=== PATIENT | male | born 1980 | race Caucasian/White ===

== ENCOUNTER 2018-08-12 20:34 | Emergency (ER) | payer OTHER ==
--- NOTE | 2018-08-12 20:45 | ER Report ---
History and Physical Time Seen By MD: 20:45 Hx. of Stated Complaint: PATIENT STATES HE HAS BEEN HAVING SINUS PAIN FOR THE LAST 2WEEKS, COUGH, SMALL AMOUNT OF SINUS DRAINAGE, BLOODY NOSES. PATIENT HAS BEEN DOING STEAMY SHOWERS AT HOME, AND MOTRIN, BUT DOESN'T SEEM TO BE GETTING BETTER. HPI/ROS CHIEF COMPLAINT: Sinus pressure, headache, cough 2 weeks HISTORY OF PRESENT ILLNESS: 38-year-old male patient presents to the emergency room with complaint of sinus pressure, headache, cough 2 weeks. Patient states that he has been so sick for the past week please not been able to get out of bed for longer than an hour. He states that he is out of bed for approximately one hour that he has worsening headache and facial pain. Patient denies having any fevers or chills. He states that he has taken ibuprofen for this with no improvement. Allergies: Uncoded Allergies: RYDER PEPPERS (Allergy, Intermediate, SEVERE VOMITING, 08/12/18) Home Meds Active Scripts Amoxicillin/Pot Clav 875-125 Mg Tab (AUGMENTIN 875-125 TABLET) 1 Each Tablet, 1 TAB PO Q12H, #19 TAB Prov:RICKY RENTERIA SAMPLE ROOM SUPERVISOR 08/12/18 Past Medical/Surgical History Patient has a past medical history of Layne's syndrome, fractures, blindness in the right eye. Patient has surgical history of right knee surgery. Reviewed Nurses Notes: Yes Constitutional Vital Sign - Last 24 Hours 08/12/18 20:38 Temp 98.1 Pulse 86 Resp 24 B/P (MAP) 126/87 Pulse Ox 96 O2 Delivery Room Air Physical Exam General appearance: Alert no distress. Respiratory: Chest is non tender, lungs are clear to auscultation. Cardiac: Regular rate and rhythm. ENT: Tympanic membranes are pearly-barron, auditory canals are patent, mucous membranes are moist. Patient does have bilateral swelling in the bilateral nares. Patient has bilateral tenderness to the frontal & maxillary sinuses. Lymph: Patient has bilateral cervical chain lymphadenopathy. DIFFERENTIAL DIAGNOSIS: After history and physical exam differential diagnosis was considered for sinusitis, upper respiratory infection. Medical Decision Making ED Course/Re-evaluation ED Course Patient was admitted to exam room, history and physical were obtained. Differential diagnoses were considered. On examination lungs are clear, heart regular, patient has swelling to bilateral nares, tenderness to the frontal and maxillary sinuses. I discussed my findings with patient. I believe that he does have a sinus infection which is causing this discomfort especially with his long as the symptoms been going on. I recommended starting patient on antibiotics. He states that they'll be good. He also requested something for pain for his headache. Patient was given a to go pack of Toradol as well as a dose of azithromycin here in the emergency room. A prescription was printed for the patient to fill tomorrow morning. Patient verbalized understanding and agreement with plan. Decision to Disposition Date: Aug 12, 2018 Decision to Disposition Time: 20:54 Depart Departure Latest Vital Signs Vital Signs Date Time Temp Pulse Resp B/P (MAP) Pulse Ox O2 Delivery O2 Flow Rate FiO2 08/12/18 20:38 98.1 86 24 126/87 96 Room Air Impression: Primary Impression: Sinusitis Condition: Improved Disposition: HOME OR SELF-CARE New Scripts Amoxicillin/Pot Clav 875-125 Mg Tab (AUGMENTIN 875-125 TABLET) 1 Each Tablet 1 TAB PO Q12H, #19 TAB Prov: RICKY RENTERIA 08/12/18 Patient Instructions: Sinusitis (ED) Additional Instructions: Increase fluid intake. Get plenty of rest. Limit activity by pain. Follow up with a primary care provider if symptoms persist. Return to the ER if condition worsens. You may take decongestant of choice. Problem Qualifiers Primary Impression: Sinusitis Sinusitis location: pansinusitis Chronicity: acute Recurrence: non- recurrent Qualified Codes: J01.40 - Acute pansinusitis, unspecified RICKY RENTERIA Aug 12, 2018 20:45
[2018-08-12] MEDS ORDERED: AMOX-559 PO (20:54)
[2018-08-12 21:00] VITALS: BP 112/72
[2018-08-12] MEDS ORDERED: KETOROLAC TROM 10 MG TAB TH PO ONE (21:00)
[2018-08-12] MEDS ORDERED: AMOX/CLAV 875 MG TAB PO ONE (21:00)
== END 2018-08-12 21:07 | disposition home or self-care (01) ==
LOC: ER 20:55
DX: J01.40 Acute pansinusitis, unspecified (principal)
CPT/HCPCS: 99283

== ENCOUNTER 2018-09-16 16:37 | Emergency (ER) | payer OTHER, MEDICAID ==
[~2018-09-16 16:37] MED LIST: AMOX-559 PO
--- NOTE | 2018-09-16 17:35 | ER Report ---
History and Physical Time Seen By MD: 17:35 Hx. of Stated Complaint: RT SHOULDER DISLOCATION HPI/ROS CHIEF COMPLAINT: right shoulder pain HISTORY OF PRESENT ILLNESS: this is a 38-year-old male who presents to the emergency department for right shoulder pain. Patient states that he was at work today when he suddenly developed right shoulder discomfort, inability to move his arm without significant pain. No recent injuries. Patient states that he used to sleep with his right arm above his head however the last couple of days he's not been able to do this as it has caused pain. 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 No chest pain or shortness of breath. No recent fevers or chills. REVIEW OF SYSTEMS: Respiratory: No cough, no dyspnea. Cardiovascular: No chest pain, no palpitations. Gastrointestinal: No vomiting, no abdominal pain. Musculoskeletal: as above. Allergies: Uncoded Allergies: RYDER PEPPERS (Allergy, Intermediate, SEVERE VOMITING, 08/12/18) Home Meds Active Scripts Cyclobenzaprine Hcl (CYCLOBENZAPRINE HCL) 10 Mg Tablet, 5-10 MG PO TID PRN for MUSCLE SPASMS, #9 TAB Prov:QUYNH MORENO CHIP WASHER-BC 09/16/18 Discontinued Scripts Amoxicillin/Pot Clav 875-125 Mg Tab (AUGMENTIN 875-125 TABLET) 1 Each Tablet, 1 TAB PO Q12H, #19 TAB Prov:RICKY RENTERIA CHIP WASHER 08/12/18 Past Medical/Surgical History The patient has a past medical and surgical history poor syndrome, blindness in the right eye, multiple fractures, right knee injury requiring surgery. Reviewed Nurses Notes: Yes Constitutional Vital Sign - Last 24 Hours 09/16/18 09/16/18 09/16/18 09/16/18 17:23 17:24 17:30 17:37 Temp 98.0 Pulse 80 86 Resp 12 B/P (MAP) 125/86 (99) 125/86 117/90 (99) Pulse Ox 94 92 O2 Delivery Room Air Room Air 09/16/18 09/16/18 09/16/18 09/16/18 17:42 18:00 18:12 18:30 Pulse 83 81 B/P (MAP) 111/95 (100) 114/80 (91) Pulse Ox 94 93 O2 Delivery Room Air Room Air 09/16/18 18:42 Pulse 77 Pulse Ox 95 O2 Delivery Room Air Physical Exam General Appearance: The patient is alert, has no immediate need for airway protection and no current signs of toxicity. Eyes: Pupils equal and round no injection. Respiratory: Chest is non tender, lungs are clear to auscultation. Cardiac: regular rate and rhythm. Gastrointestinal: Abdomen is soft and non tender, no masses, bowel sounds normal. Musculoskeletal: Neck: Neck is supple and non tender. Extremities no obvious deformity to the right shoulder, however there does appear to be some swelling to the anterior aspect. Generalized pain to the general head with palpation. Pain with abduction and adduction. Equal manager hair strength. CMS intact. Skin: No rashes or lesions. DIFFERENTIAL DIAGNOSIS: After history and physical exam differential diagnosis was considered for acromioclavicular joint separation, anterior dislocation, fr acture, osteomyelitis, impingement syndrome. Medical Decision Making EKG/Imaging Imaging Location: [facility] [place] Patient: Ravi Gresham : 1980 Visit/Account:[id number] Date of Sevice: 09/16/2018 Examination: 4 views right shoulder. Comparison: None. History: Right shoulder pain. Findings: No fracture. Alignment and joint spaces are normal. Soft tissues are unremarkable. Visualized lungs are clear. IMPRESSION: Negative right shoulder. Report Dictated By: Babar Montana MD at 09/16/2018 6:35 PM Report E-Signed By: Babar Montana MD at 09/16/2018 6:37 PM WSN:[id number] ED Course/Re-evaluation ED Course The patient was admitted to room. A history and physical were obtained. Differential diagnoses were considered. An x-ray of the right shoulder was negative for any acute osseous abnormalities. I reviewed the results with the patient. I did tell him that this is likely an overuse injury or impingement syndrome. Patient was placed in a sling, he was given 60 mg IM Norflex which did seem to relieve some of his discomfort. He was given a prescription for Flexeril, take home pack for Flexeril and ibuprofen. The patient was instructed to follow up with [facility] next week for reevaluation. Patient was given 5 days off work to rest his shoulder. He had no other questions or concerns at this time and discharged home. He was in agreement with this plan of care. Decision to Disposition Date: Sep 16, 2018 Decision to Disposition Time: 18:58 Depart Departure Latest Vital Signs Vital Signs Date Time Temp Pulse Resp B/P (MAP) Pulse Ox O2 Delivery O2 Flow Rate FiO2 09/16/18 18:42 77 95 Room Air 09/16/18 18:30 114/80 (91) 09/16/18 17:24 98.0 12 Impression: Primary Impression: Impingement syndrome of right shoulder Condition: Improved Disposition: HOME OR SELF-CARE Referrals: MARCUS JIMENEZ MD 5 Days New Scripts Cyclobenzaprine Hcl (CYCLOBENZAPRINE HCL) 10 Mg Tablet 5-10 MG PO TID PRN for MUSCLE SPASMS, #9 TAB Prov: QUYNH MORENO-BC 09/16/18 Departure Forms: ER Transition Record, Medications Reconciliation, Off Work/School Form, School or Work Release?: Work Number of days to be released: 5 Patient Portal Information Patient Instructions: Shoulder Pain (ED) Additional Instructions: No concerning findings on Xray. You likely have an impingement syndrome or repetitive motion injury. Use the sling for comfort. Drink plenty of water. Get plenty of rest. Take Ibuprofen or Tylenol as needed for pain. Use the flexeril as needed for severe muscle pain. Return to the ED for any other concerns or worsening symptoms. Follow up with [facility] for reevaluation of your shoulder. QUYNH MORENO CHIP WASHER-BC Sep 16, 2018 17:35
[2018-09-16] MEDS ORDERED: ORPHENADRINE 60MG/2ML INJ IM ONE (17:50)
[2018-09-16 18:30] VITALS: BP 114/80
--- NOTE | 2018-09-16 18:40 | RADIOLOGY IMAGING REPORT ---
FACILITY: [facility] - [place] PATIENT NAME: Ravi Gresham : 1980 MR: [id number] V: [id number] EXAM DATE: ORDERING PHYSICIAN: QUYNH MORENO TECHNOLOGIST: Location: [facility] Patient: Ravi Gresham : 1980 Visit/Account:[id number] Date of Sevice: 09/16/2018 Examination: 4 views right shoulder. Comparison: None. History: Right shoulder pain. Findings: No fracture. Alignment and joint spaces are normal. Soft tissues are unremarkable. Visualiz ed lungs are clear. IMPRESSION: Negative right shoulder. Report Dictated By: Babar Montana MD at 09/16/2018 6:35 PM Report E-Signed By: Babar Montana MD at 09/16/2018 6:37 PM WSN:[id number]
[2018-09-16] MEDS ORDERED: CYCL10TA29 PO (18:59)
[2018-09-16] MEDS ORDERED: CYCLOBENZAPRINE HCL 10 MG TH PO ONE (19:00)
[2018-09-16] MEDS ORDERED: IBUPROFEN 600 MG TAB TH PO ONE (19:00)
[2018-09-16] MEDS ORDERED: IBUPROFEN 800 MG TAB PO ONE (19:00)
== END 2018-09-16 19:12 | disposition home or self-care (01) ==
LOC: ER 17:37
DX: M75.41 Impingement syndrome of right shoulder (principal)
CPT/HCPCS: 73030; 96372; 99283; A4565; J2360

== ENCOUNTER 2018-09-25 21:17 | Emergency (ER) | payer MEDICAID, OTHER ==
[2018-09-25] MEDS: EMS NS 0.9%(*) 1000 ML BAG 1,000 ML IV ONE ×2 (21:12→22:12)
[~2018-09-25 21:17] MED LIST changes: -METH4TAB66 PO
[2018-09-25] MEDS ORDERED: METH4TAB66 PO (21:25)
--- NOTE | 2018-09-25 21:29 | ER Report ---
History and Physical Time Seen By MD: 21:29 Hx. of Stated Complaint: patient had shoulder injury 1week ago, was started on methylprednisolone pack for injury. three days ago patient started to feel likes throat swelling, hard to swollow. patient started having shortness of breath this morning, feels like he can't take a deep breath and can't get the breath all the way out. HPI/ROS CHIEF COMPLAINT: Difficulty swallowing HISTORY OF PRESENT ILLNESS: This is a 38 rolled male. He is been having some difficulty swallowing for the last 3 days seems to be worse. Feels like there something stuck in his throat. Making him very anxious. He is not sure if it's related to recent starting of some methylprednisolone for her shoulder injury. His chest feels a little tight as well and he has a cough. Fevers as well. Feels like he can't take a deep breath and/or breathe all the way out. Denies any back pain. No abdominal pain. No nausea or vomiting. Normal bowel and bladder function. Allergies: Uncoded Allergies: RYDER PEPPERS (Allergy, Intermediate, SEVERE VOMITING, 08/12/18) Home Meds Reported Medications Methylprednisolone (METHYLPREDNISOLONE) 4 Mg Tab.ds.pk, 4 MG PO DIRECTED, TAB 09/25/18 Discontinued Scripts Cyclobenzaprine Hcl (CYCLOBENZAPRINE HCL) 10 Mg Tablet, 5-10 MG PO TID PRN for MUSCLE SPASMS, #9 TAB Prov:QUYNH MORENO TRANSACTION MANAGER-BC 09/16/18 Reviewed Nurses Notes: Yes Constitutional Vital Sign - Last 24 Hours 09/25/18 09/25/18 09/25/18 21:19 23:50 23:50 Temp 98.5 Pulse 84 76 Resp 28 16 B/P (MAP) 136/84 Pulse Ox 100 96 O2 Delivery Nasal Cannula Nasal Cannula O2 Flow Rate 1.0 Intake and Output 09/25/18 09/25/18 09/26/18 15:00 23:00 07:00 Intake Total 1000 ml Balance 1000 ml Physical Exam General Appearance: The patient is alert. Extremely anxious and having acute distress because of the symptoms. Non-toxic in appearance. Vital signs are stable. Eyes: Pupils are equal, round. No pallor, injection or icterus. ENT: Mucous membranes are moist. Normal oral mucosa. Posterior oropharynx has significant erythema with some exudates but no hypertrophy. There is no swelling noted. Very mild postnasal drainage. Normal tympanic membranes and canals. Neck: Supple and non tender. No lymphadenopathy. Respiratory: Breathing easily and unlabored. Lungs are clear to auscultation. Cardiovascular: Regular rate and rhythm. No murmurs, gallops or rubs. Normal capillary refill. Gastrointestinal: Abdomen is soft and non tender. Nondistended. Normal active bowel sounds. Neurological: Alert and oriented x3. No focal neurologic deficits Skin: Warm and dry. No rashes. Musculoskeletal: No tenderness in palpation of the cervical, thoracic and lumbar spine. DIFFERENTIAL DIAGNOSIS: After history and physical exam, differential diagnosis was considered for patient with significant symptoms of feeling like he can't breathe with some pain in his throat, feeling like there may be something stuck there but he denies having any food stuck there. With his erythema and exudates I would assume this is likely going to be infectious etiology but would need to rule out abscess or other mass there. Medical Decision Making Data Points Result Diagram: [id number]/25/[id number] Laboratory Hematology Test 09/25/18 21:27 09/25/18 21:56 Monoscreen Negative (NEGATIVE) Influenza Virus Type A (PCR) Negative (NEGATIVE) Influenza Virus Type B (PCR) Negative (NEGATIVE) Group A Streptococcus (PCR) Negative (NEGATIVE) Red Blood Count 4.68 M/uL (4.00-5.60) Mean Corpuscular Volume 95.3 fL (80.0-96.0) Mean Corpuscular Hemoglobin 32.8 pg (26.0-33.0) Mean Corpuscular Hemoglobin Concent 34.4 g/dL (32.0-36.0) Red Cell Distribution Width 14.8 % (11.5-14.5) Mean Platelet Volume 8.9 fL (7.2-11.1) Neutrophils (%) (Auto) 71.7 % (39.4-72.5) Lymphocytes (%) (Auto) 19.5 % (17.6-49.6) Monocytes (%) (Auto) 7.8 % (4.1-12.4) Eosinophils (%) (Auto) 0.4 % (0.4-6.7) Basophils (%) (Auto) 0.6 % (0.3-1.4) Nucleated RBC Relative Count (auto) 0.0 /100WBC Neutrophils # (Auto) 10.2 K/uL (2.0-7.4) Lymphocytes # (Auto) 2.8 K/uL (1.3-3.6) Monocytes # (Auto) 1.1 K/uL (0.3-1.0) Eosinophils # (Auto) 0.1 K/uL (0.0-0.5) Basophils # (Auto) 0.1 K/uL (0.0-0.1) Nucleated RBC Absolute Count (auto) 0.00 K/uL Sodium Level 137 mmol/L (137-145) Potassium Level 3.7 mmol/L (3.5-5.0) Chloride Level 103 mmol/L (98-107) Carbon Dioxide Level 26 mmol/L (22-30) Blood Urea Nitrogen 12 mg/dl (9-21) Creatinine 1.00 mg/dl (0.66-1.25) Glomerular Filtration Rate Calc > 60.0 Random Glucose 111 mg/dl (75-110) Calcium Level 9.1 mg/dl (8.4-10.2) Total Bilirubin 0.2 mg/dl (0.2-1.3) Aspartate Amino Transf (AST/SGOT) 22 U/L (0-35) Alanine Aminotransferase (ALT/SGPT) 36 U/L (0-56) Alkaline Phosphatase 78 U/L (0-126) Troponin I < 0.012 ng/ml Total Protein 7.0 g/dl (6.3-8.2) Albumin 4.4 g/dl (3.5-5.0) Chemistry Test 09/25/18 21:27 09/25/18 21:56 Monoscreen Negative (NEGATIVE) Influenza Virus Type A (PCR) Negative (NEGATIVE) Influenza Virus Type B (PCR) Negative (NEGATIVE) Group A Streptococcus (PCR) Negative (NEGATIVE) White Blood Count 14.3 k/uL (4.5-11.0) Red Blood Count 4.68 M/uL (4.00-5.60) Hemoglobin 15.4 g/dL (14.0-18.0) Hematocrit 44.6 % (42.0-52.0) Mean Corpuscular Volume 95.3 fL (80.0-96.0) Mean Corpuscular Hemoglobin 32.8 pg (26.0-33.0) Mean Corpuscular Hemoglobin Concent 34.4 g/dL (32.0-36.0) Red Cell Distribution Width 14.8 % (11.5-14.5) Platelet Count 235 K/uL (150-450) Mean Platelet Volume 8.9 fL (7.2-11.1) Neutrophils (%) (Auto) 71.7 % (39.4-72.5) Lymphocytes (%) (Auto) 19.5 % (17.6-49.6) Monocytes (%) (Auto) 7.8 % (4.1-12.4) Eosinophils (%) (Auto) 0.4 % (0.4-6.7) Basophils (%) (Auto) 0.6 % (0.3-1.4) Nucleated RBC Relative Count (auto) 0.0 /100WBC Neutrophils # (Auto) 10.2 K/uL (2.0-7.4) Lymphocytes # (Auto) 2.8 K/uL (1.3-3.6) Monocytes # (Auto) 1.1 K/uL (0.3-1.0) Eosinophils # (Auto) 0.1 K/uL (0.0-0.5) Basophils # (Auto) 0.1 K/uL (0.0-0.1) Nucleated RBC Absolute Count (auto) 0.00 K/uL Glomerular Filtration Rate Calc > 60.0 Calcium Level 9.1 mg/dl (8.4-10.2) Total Bilirubin 0.2 mg/dl (0.2-1.3) Aspartate Amino Transf (AST/SGOT) 22 U/L (0-35) Alanine Aminotransferase (ALT/SGPT) 36 U/L (0-56) Alkaline Phosphatase 78 U/L (0-126) Troponin I < 0.012 ng/ml Total Protein 7.0 g/dl (6.3-8.2) Albumin 4.4 g/dl (3.5-5.0) EKG/Imaging EKG Interpretation 12 lead EKG: Rhythm: normal sinus rhythm, rate 87 [place]: normal QRS: normal ST segments: normal Imaging CT ANGIOGRAM OF THE CHEST WITH INTRAVENOUS CONTRAST, PE PROTOCOL DATE OF EXAM: 09/25/2018 21:36 COMPARISON: None. INDICATION: chest and throat pain, trouble swallowing and breathing. TECHNIQUE: Contrast enhanced chest CT performed during the injection of 75 ml of Isovue-370. Three-dimensional (MIP) reconstructions were performed. FINDINGS: Negative for pulmonary arterial embolus. No effusion, consolidation, or pneumothorax. Mild dependent atelectasis. Thyroid: The imaged portion of the gland appears normal. Thoracic inlet: No thoracic inlet adenopathy. Heart and great vessels: Heart size is normal. Mediastinum and kerri: No adenopathy. Lungs and pleura: As above. Breast and axilla: Unremarkable by CT. Bones and soft tissues: No acute osseous abnormality. Upper abdomen: Unremarkable. IMPRESSION: Negative for pulmonary arterial embolus. Report Dictated By: Александр Whitt MD at 09/25/2018 10:41 PM EXAMINATION: CT neck with IV contrast HISTORY: Chest and throat pain, trouble swallowing and breathing. COMPARISON: None. TECHNIQUE: Spiral scan was obtained from the hard palate through the upper chest during injection of nonionic iodinated intravenous contrast. Sagittal and coronal reformatted images are also submitted. CONTRAST: 75 mL of IV Isovue-370. One of the following dose optimization techniques was utilized in the performance of this exam: Automated exposure control; adjustment of the mA and/or kV according to the patient's size; or use of an iterative reconstruction technique. Specific details can be referenced in the facility's radiology CT exam operational policy. FINDINGS: Masses/lesions: There is no focal mass lesion of the visualized aerodigestive tract. No abnormal enhancement. Airway: Normal. Vessels: Negative. Musculoskeletal/body wall: Negative. Lymph nodes: Negative. Visualized orbits/brain/paranasal sinuses: Visualized intracranial contents are normal. There is mild mucosal thickening in the left maxillary sinus with a 1.5 cm mucous retention cyst. Upper chest: Negative. IMPRESSION: 1. No neck mass, or explanation for the patient's symptoms. 2. Mild nonobstructive inflammation of the left maxillary sinus with a 1.5 cm mucous retention cyst. Report Dictated By: Montserrat Barreto MD at 09/25/2018 11:17 PM ED Course/Re-evaluation Clinical Indication for ER IV: Hydration, IV Access ED Course CTs were negative. Labs show a mild elevation of his white count. His strep, mono, influenza were negative. We did some nebulized lidocaine and then a Magic mouthwash and he feels much better. He was able to drink some fluid and is breathing easier. Vital signs remained stable during the visit. Discharged with a diagnosis of viral pharyngitis. Decision to Disposition Date: Sep 26, 2018 Decision to Disposition Time: 00:25 Depart Departure Latest Vital Signs Vital Signs Date Time Temp Pulse Resp B/P (MAP) Pulse Ox O2 Delivery O2 Flow Rate FiO2 09/25/18 23:50 76 16 09/25/18 23:50 96 Nasal Cannula 1.0 09/25/18 21:19 98.5 136/84 Impression: Primary Impression: Pharyngitis Condition: Improved Disposition: HOME OR SELF-CARE Patient Instructions: Pharyngitis (ED) Additional Instructions: Take 1 teaspoon of magic mouthwash, swish, gargle and swallow, every 6 hours as needed for pain. Keep drinking plenty of fluids. Tylenol or Ibuprofen as needed for pain. Finish the Medrol Dosepack. Problem Qualifiers Primary Impression: Pharyngitis Pharyngitis/tonsillitis etiology: unspecified etiology Qualified Codes: J02.9 - Acute pharyngitis, unspecified AMY DANIELSON MD Sep 25, 2018 21:29
[2018-09-25] MEDS ORDERED: DEXAMETHASONE SOD PHOS 10MG/ML IVP ONE (21:40)
[2018-09-25] MEDS ORDERED: NS(*) 0.9% 50 ML BAG 50 ML ONE (21:50)
[2018-09-25] MEDS ORDERED: IOPAMIDOL 76% 75 ML INFUS BTL 75 ML ONE (21:50)
--- NOTE | 2018-09-25 21:54 | EKG ---
FACILITY: [facility] - [place] PATIENT NAME: NAYELI SCHAFER : [id number] MR: [id number] V: [id number] EXAM DATE: ORDERING PHYSICIAN: AMY DANIELSON TECHNOLOGIST: JASBIR Test Reason : CP Blood Pressure : / mmHG Vent. Rate : 087 BPM Atrial Rate : 087 BPM P-R Int : 142 ms QRS Dur : 082 ms QT Int : 350 ms P-R-T Axes : 073 083 058 degrees QTc Int : 421 ms Normal sinus rhythm Normal ECG No previous ECGs available Confirmed by Melvin Mari ([id number]) on 09/25/2018 10:50:44 PM Referred By: Confirmed By:Melvin Mcgarry
[2018-09-25 22:03] LABS: PLATELET COUNT, AUTOMATED 235 K/uL (150-450)
--- NOTE | 2018-09-25 22:59 | RADIOLOGY IMAGING REPORT ---
FACILITY: [facility] PATIENT NAME: Ravi Gresham : 1980 MR: [id number] V: [id number] EXAM DATE: [id number] ORDERING PHYSICIAN: AMY DANIELSON TECHNOLOGIST: Location: [facility] Patient: Ravi Gresham : 1980 Visit/Account:[id number] Date of Sevice: 09/25/2018 CT ANGIOGRAM OF THE CHEST WITH INTRAVENOUS CONTRAST, PE PROTOCOL DATE OF EXAM: 09/25/2018 21:36 COMPARISON: None. INDICATION: chest and throat pain, trouble swallowing and breathing. TECHNIQUE: Contrast enhanced chest CT performed during the injection of 75 ml of Isovue-370. Three-d imensional (MIP) reconstructions were performed. FINDINGS: Negative for pulmonary arterial embolus. No effusion, consolidation, or pneumothorax. Mild dependent atelectasis. Thyroid: The imaged portion of the gland appears normal. Thoracic inlet: No thoracic inlet adenopathy. Heart and great vessels: Heart size is normal. Mediastinum and kerri: No adenopathy. Lungs and pleura: As above. Breast and axilla: Unremarkable by CT. Bones and soft tissues: No acute osseous abnormality. Upper abdomen: Unremarkable. IMPRESSION: Negative for pulmonary arterial embolus. One of the following dose optimization techniques was utilized in the performance of this exam: Autom ated exposure control; adjustment of the mA and/or kV according to the patient's size; or use of an i terative reconstruction technique. Specific details can be referenced in the facility's radiology C T exam operational policy. Report Dictated By: Александр Whitt MD at 09/25/2018 10:41 PM Report E-Signed By: Александр Whitt MD at 09/25/2018 10:55 PM WSN:[id number]
--- NOTE | 2018-09-25 23:27 | RADIOLOGY IMAGING REPORT ---
FACILITY: [facility] [place] PATIENT NAME: Ravi Gresham : 1980 MR: [id number] V: [id number] EXAM DATE: ORDERING PHYSICIAN: AMY DANIELSON TECHNOLOGIST: Location: [facility] [place] Patient: Ravi Gresham : 1980 Visit/Account:[id number] Date of Sevice: 09/25/2018 EXAMINATION: CT neck with IV contrast HISTORY: Chest and throat pain, trouble swallowing and breathing. COMPARISON: None. TECHNIQUE: Spiral scan was obtained from the hard palate through the upper chest during injection o f nonionic iodinated intravenous contrast. Sagittal and coronal reformatted images are also submitte d. CONTRAST: 75 mL of IV Isovue-370. One of the following dose optimization techniques was utilized in the performance of this exam: Autom ated exposure control; adjustment of the mA and/or kV according to the patient's size; or use of an i terative reconstruction technique. Specific details can be referenced in the facility's radiology C T exam operational policy. FINDINGS: Masses/lesions: There is no focal mass lesion of the visualized aerodigestive tract. No abnormal enh ancement. Airway: Normal. Vessels: Negative. Musculoskeletal/body wall: Negative. Lymph nodes: Negative. Visualized orbits/brain/paranasal sinuses: Visualized intracranial contents are normal. There is mild mucosal thickening in the left maxillary sinus with a 1.5 cm mucous retention cyst. Upper chest: Negative. IMPRESSION: 1. No neck mass, or explanation for the patient's symptoms. 2. Mild nonobstructive inflammation of the left maxillary sinus with a 1.5 cm mucous retention cyst. Report Dictated By: Montserrat Barreto MD at 09/25/2018 11:17 PM Report E-Signed By: Montserrat Barreto MD at 09/25/2018 11:22 PM WSN:[id number]
[2018-09-25] MEDS ORDERED: LIDOCAINE MPF 4% 200MG/5ML AMP INH ONE (23:40)
[2018-09-25] MEDS ORDERED: MAG HYD/AL HYD/SIMETH 30ML UDC PO ONE (23:40)
[2018-09-25] MEDS ORDERED: LIDOCAINE 2% VISC SLN 15ML UDC PO ONE (23:40)
[2018-09-26 00:30] VITALS: BP 122/86
== END 2018-09-26 00:43 | disposition home or self-care (01) ==
LOC: ER 21:40
DX: J02.9 Acute pharyngitis, unspecified (principal)
CPT/HCPCS: 70491; 71275; 84484; 85025; 86308; 87502; 87653; 93005; 94640; 96361; 96374; 99284; J1100; J2001; J7050; Q0163; Q9967; 82040; 82247; 82310; 82374; 82435; 82565; 82947; 84075; 84132; 84155; 84295; 84450; 84460; 84520

== ENCOUNTER → 2018-09-25 | Outpatient (CLI) | payer MEDICAID ==
[~2018-09-25] MED LIST changes: +CYCL10TA29 PO; +METH4TAB66 PO
== END ==
LOC: AMB 21:04
PROVIDERS: ATTEND Nurse Practitioner
DX: R13.10 Dysphagia, unspecified (principal); M54.2 Cervicalgia; M25.519 Pain in unspecified shoulder
CPT/HCPCS: A0425; A0427